=== PATIENT | male | born 1955 | race Caucasian/White ===

== ENCOUNTER 2018-02-20 07:17 | Day surgery (SDC) | payer OTHER ==
[~2018-02-20 07:17] MED LIST: Lactated Ringers 1,000 ML IV SCH; Sodium Chloride 0.9% 10 ML Syringe FLUSH PRN
[2018-02-20] MEDS ORDERED: fentaNYL 100 MCG/2 ML SDV ONE (08:39)
[2018-02-20] MEDS ORDERED: Propofol 200 MG/20 ML SDV ONE ×2 (08:39→09:33)
[2018-02-20] MEDS ORDERED: fentaNYL 100 MCG/2 ML SDV IVPUSH ONE (10:21)
[2018-02-20] MEDS ORDERED: Ibuprofen 200 MG Tab PO PRN (10:22)
[2018-02-20] MEDS ORDERED: Lidocaine/EPINEPHrine/Tetracaine Soln 5 ML Each TOP ONE (11:00)
[2018-02-20] MEDS ORDERED: Acetaminophen 1,000 MG in Premix Bag 1 BAG IV ONE (11:01)
--- NOTE | 2018-02-20 17:30 | OR ---
PREOPERATIVE DIAGNOSIS: Rectal bleeding. POSTOPERATIVE DIAGNOSIS: Bleeding internal hemorrhoids, colonic polyp x1 at 10 cm. Mild sigmoid diverticulosis. PLANNED PROCEDURE: Total flexible colonoscopy. PROCEDURE DONE: Total flexible colonoscopy with hot snare polypectomy x1. INDICATION: This is a 62-year-old gentleman, comes in for colonic surveillance. He has a family history of colon cancer in his mother. He also has been having some intermittent rectal bleeding. Last colonoscopy was about 4-1/2 years ago. TECHNIQUE: The patient brought to the endoscopy suite, placed in left lateral decubitus position. He was sedated per [facility] [employer] with propofol. The flexible video colonoscope was then passed transanally and under visualization advanced to the cecum. Examination revealed a normal ascending, transverse, descending colon. Sigmoid colon revealed some mild diverticular disease and at 10 cm, there was a polyp removed by hot snare technique and retrieved with a grasping forceps. Otherwise, no signs for any blood loss in the colon, but he appeared to have some internal hemorrhoids, which will be addressed with anoscopy. The scope was then withdrawn. He tolerated the procedure well. FINAL IMPRESSION: 1. Mild sigmoid diverticulosis. 2. High rectal polyp x1 removed. 3. Family history of colon cancer-mother. PLAN: He will be sent a letter with pathology report. I felt that he should continue with colonic surveillance every 5 years hereafter. SCM: 02/20/2018 10:01:29 MODL: 02/20/2018 17:25:07 /[id number]
--- NOTE | 2018-02-20 17:35 | OR ---
PREOPERATIVE DIAGNOSIS: Bleeding internal hemorrhoids. POSTOPERATIVE DIAGNOSIS: Bleeding internal hemorrhoids. PLANNED PROCEDURE: Anoscopy with probable hemorrhoid banding. PROCEDURE DONE: Anoscopy with suction hemorrhoid banding x3. INDICATION: This is a 62-year-old gentleman with intermittent rectal bleeding. His colonoscopy did not show any significant bleeding site, other than the hemorrhoids. He was already sedated per CHILD DEVELOPMENT CONSULTANT and the lighted anoscope was then inserted transanally. He was found to have friable internal hemorrhoids in all 3 quadrants. I examined the right posterior and left lateral quadrants. I did proceed to band the hemorrhoid in each quadrant using the suction hemorrhoid millinery worker. Obtaining a good amount of tissue into each banding. He tolerated the procedure well. FINAL IMPRESSION: Bleeding internal hemorrhoids with hemorrhoid banding x3. PLAN: I would like to follow up with him in the office to see how he is doing symptomatically. To see if there is any further need for hemorrhoid banding. If he continues to have issues, he may need to consider a stapled hemorrhoidopexy. SCM: 02/20/2018 10:01:29 MODL: 02/20/2018 17:29:52 /[id number]
== END 2018-02-20 12:09 | disposition home or self-care (01) ==
LOC: VM.SDS 07:17
PROVIDERS: ATTEND Surgery
DX: D12.5 Benign neoplasm of sigmoid colon (principal); K64.8 Other hemorrhoids; K57.30 Diverticulosis of large intestine without perforation or abscess without bleeding; D12.8 Benign neoplasm of rectum; N40.1 Benign prostatic hyperplasia with lower urinary tract symptoms; R39.11 Hesitancy of micturition; E53.8 Deficiency of other specified B group vitamins; I10 Essential (primary) hypertension; K21.9 Gastro-esophageal reflux disease without esophagitis; M25.50 Pain in unspecified joint; Z79.899 Other long term (current) drug therapy; Z90.89 Acquired absence of other organs; Z98.890 Other specified postprocedural states; Z80.0 Family history of malignant neoplasm of digestive organs
CPT/HCPCS: A9270-GY; J2704; J3010; J7120

== ENCOUNTER 2023-02-23 08:16 | Day surgery (SDC) | payer MEDICARE, OTHER ==
[~2023-02-23 08:16] MED LIST changes: -Sodium Chloride 0.9% 10 ML Syringe FLUSH PRN
[2023-02-23] MEDS ORDERED: fentaNYL 100 MCG/2 ML SDV ONE (09:35)
[2023-02-23] MEDS ORDERED: Midazolam 1 MG/ML 2 ML SDV ONE (09:35)
[2023-02-23] MEDS ORDERED: Propofol 200 MG/20 ML SDV ONE ×2 (09:35→10:59)
== END 2023-02-23 12:15 | disposition home or self-care (01) ==
LOC: VM.SDS 08:16
PROVIDERS: ATTEND Family Medicine
DX: Z12.11 Encounter for screening for malignant neoplasm of colon (principal); D12.3 Benign neoplasm of transverse colon; K62.1 Rectal polyp; Q43.8 Other specified congenital malformations of intestine; E78.5 Hyperlipidemia, unspecified; H52.209 Unspecified astigmatism, unspecified eye; K21.9 Gastro-esophageal reflux disease without esophagitis; R41.0 Disorientation, unspecified; D51.9 Vitamin B12 deficiency anemia, unspecified; G56.00 Carpal tunnel syndrome, unspecified upper limb; G62.9 Polyneuropathy, unspecified; Z90.89 Acquired absence of other organs; Z98.890 Other specified postprocedural states; Z79.899 Other long term (current) drug therapy; Z80.0 Family history of malignant neoplasm of digestive organs
CPT/HCPCS: 00812; 88305; J2250; J2704; J3010; J7120